=== PATIENT | female | born 1975 | race Caucasian/White ===

== ENCOUNTER 2020-10-09 12:13 | Inpatient (IN) | payer BC, OTHER ==
[2020-10-09] VITALS (11 sets, daily range): BP systolic 121–170; BP diastolic 66–100
[~2020-10-09] VITALS: Ht 167.6 cm; Wt 102.1 kg
--- NOTE | ~2020-10-09 | HC ---
[facility] [place] [address] [place] [address] CONSULTATION Name: STEVEN MILES Room #: DEP Rose#: [id number] Admission: 10/09/20 Attend Phys: Discharge: 10/09/20 Date of : 79 Report #: [id number] THIS REPORT FOR: cc: FAM - Family physician unknown FAM - Family physician unknown Medardo Campbell MD ~ DATE OF SERVICE: 10/09/2020 CARDIOLOGY CONSULTATION INDICATION: Chest pain. HISTORY OF PRESENT ILLNESS: This is a 45-year-old female with a history of hypertension, hypercholesterolemia, tobacco use, and psoriasis, presenting with acute onset of left-sided chest pain. She was eating breakfast when she developed discomfort in the left side radiating down the left arm. She felt nauseous and mildly dyspneic. She called 911 about 10 minutes after onset of symptoms. She reports having prior episodes, less intense and resolving quickly. There is no history of fever, chills, or orthopnea. The EKG performed by EMS revealed ST elevation in inferior leads. In the ER, she received aspirin, Effient and heparin. She was noted to be hypotensive, treated with intravenous saline. PAST MEDICAL HISTORY: Apparent history of hypertension and hypercholesterolemia, not on any medications. She has not seen a physician in quite some time. ALLERGIES: None. MEDICATIONS: None. SOCIAL HISTORY: Positive tobacco use, 1 pack per day. FAMILY HISTORY: Negative for premature CAD. REVIEW OF SYSTEMS: Please see HPI. PHYSICAL EXAMINATION: VITAL SIGNS: Blood pressure is 120/70, heart rate is 90 beats per minute. GENERAL APPEARANCE: This is an overweight female, in mild distress. HEENT: Normocephalic, atraumatic. Oral mucosa moist. NECK: Supple. LUNGS: Clear to auscultation. CARDIAC: Regular rate and rhythm, S1, S2 positive. ABDOMEN: Soft, nontender. [facility] [address] [place] [address] CONSULTATION Name: STEVEN MILES Room #: DEP STEPHANIE Rose#: [id number] Admission: 10/09/20 Attend Phys: Discharge: 10/09/20 Date of : 79 Report #: [id number] EXTREMITIES: No edema, no cyanosis. ECG reveals sinus rhythm with ST elevation in the inferolateral leads II, III, aVF, V5 and V6. ST depression in V2. ASSESSMENT AND PLAN: 1. Acute inferolateral myocardial infarction, treated with heparin, aspirin, and Effient. We will be taken emergently to the cardiac clinical laboratory scientist. 2. Hypercholesterolemia, will need to initiate statin therapy. 3. Hypertension, history of but not on medications, presented with hypotension, probably due to acute insult as well as RV component. We will manage with fluids for now. 4. Tobacco use, complete smoking cessation is advised. By: [id number] Medardo Campbell MD /nt
[2020-10-09 12:48] LABS: ANION GAP 11 mmol/L (7-16); BUN 11 mg/dL (7-18); CALCIUM 8.7 mg/dL (8.5-10.1); CHLORIDE 104 mmol/L (98-107); CO2 22 mmol/L (21-32); CREATININE 0.9 mg/dL (0.6-1.0); GLUCOSE 141 mg/dL (74-106); POTASSIUM 3.7 mmol/L (3.5-5.1); SODIUM 137 mmol/L (136-145)
[2020-10-09 12:56] LABS: TROPONIN-I <0.06 ng/mL (<0.06)
[2020-10-09 12:57] LABS: PROTIME 10.5 Seconds (9.3-11.4)
[2020-10-09 13:11] LABS: ABSOLUTE NEUTROPHILS 5.9 thou/uL (1.4-8.2); BASOPHILS 0.7 % (0.0-2.0); EOSINOPHILS 1.5 % (0.0-3.0); HEMATOCRIT 40.7 % (37.0-47.0); HEMOGLOBIN 13.4 gm/dL (12.0-15.0); MCH 29.9 pg (26.0-34.0); MCHC 32.9 g/dL (28.0-37.0); MONOCYTES 4.4 % (1.0-8.0); PLATELET COUNT 238 thou/uL (150-400); POLYS 74.4 % (36.0-66.0); RBC 4.47 mil/uL (4.20-5.00); RDW 13.2 % (10.5-14.5); WBC 7.9 thou/uL (4.0-11.0)
[2020-10-09 13:24] LABS: CHOLESTEROL 247 mg/dL (<200); HDL CHOLESTEROL 34 mg/dL (>40); LDL CHOLESTEROL 172 mg/dL (<100); TC:HDL 7.3 Ratio (Not establshd); TRIGLYCERIDE 205 mg/dL (<150); VLDL 41 mg/dL (<40)
--- NOTE | 2020-10-09 17:59 | NUR ---
PT CARE ASSUMED AT 1410. ASSESSMENTS CHARTED. MEDICATIONS CHARTED. RAC IV. LFA IV. SINUS RHYTHM. RT GROIN, MYNX; LDA. HEMOSTASIS AT 1345, BEDREST UNTIL 1645. ACHS, PT IS NOT DIABETIC.
[2020-10-10] VITALS (8 sets, daily range): BP systolic 123–150; BP diastolic 60–90
--- NOTE | 2020-10-10 03:29 | NUR ---
PT IS ALERT AND ORIENTED X4. LUNGS ARE CLEAR. UP AMBULATES TO BATHROOM. RIGHT GROIN SITE WITH MINX DRESSING. SLIGHT HEMATOMA NOTED. COMPLAINS OF RIGHT KNEE PAIN RATES IT A 7. MEDICATED WITH PAIN MEDS FOR COMFORT. AND PT RESTING NOW AFTER MEDS GIVEN. WILL CONTINUE TO ASSESS AND MONITOR PER NURSING AT THIS TIME.
[2020-10-10 04:57] LABS: HEMATOCRIT 38.2 % (37.0-47.0); HEMOGLOBIN 12.8 gm/dL (12.0-15.0); MCH 30.2 pg (26.0-34.0); MCHC 33.5 g/dL (28.0-37.0); MCV 90.1 fL (80.0-100.0); RBC 4.24 mil/uL (4.20-5.00); RDW 13.1 % (10.5-14.5); WBC 10.2 thou/uL (4.0-11.0)
[2020-10-10 05:14] LABS: CALCIUM 8.5 mg/dL (8.5-10.1); CREATININE 0.8 mg/dL (0.6-1.0); TOTAL BILIRUBIN 0.3 mg/dL (0.2-1.0); TOTAL PROTEIN 6.1 g/dL (6.4-8.2)
[2020-10-10 05:15] LABS: TROPONIN-I 9.54 ng/mL (<0.06)
--- NOTE | 2020-10-10 05:18 | NUR ---
ELIZABETH FROM LAB CALLED WITH CRITICAL TROPONIN OF 9.54. ALL APPROPRIATE PARTIES NOTIFIED. CRITICAL LAB DOCUMENTED.
[2020-10-10 05:36] LABS: GLYCOHEMOGLOBIN (HGB A1C) 5.6 % (4.8-5.6)
--- NOTE | 2020-10-10 09:25 | EKG ---
[address] [address] ELECTROCARDIOGRAM REPORT Name: STEVEN MILES Room #: 210-P ADM IN M.R.#: [id number] Admission: 10/09/20 Attend Phys: Fouzia Barry Discharge: Date of : 79 Report #: [id number] [facility] Test Date: 2020-10-10 Test Time: 09:04:21 Pat Name: STEVEN MILES Department: Room: 210 P Gender: F Acquisition Manager: [place] : 1975 Requested By: Medardo Campbell Order Number: [id number] MD: Rodri Ty Measurements Intervals [place] Rate: 56 P: 51 VT: 130 QRS: 20 QRSD: 94 T: -16 QT: 520 QTc: 502 Interpretive Statements Sinus rhythm Probable anterior infarct, age indeterminate No previous ECG available for comparison Electronically Signed On 10-10-2020 9:25:46 ALL TERRAIN VEHICLE TECHNICIAN by Rodri Ty [email or web address] <ELECTRONICALLY SIGNED> By: Rodri Ty MD 10/10/2025 3 3 Rodri Ty MD /CHARLA
--- NOTE | 2020-10-10 12:02 | EKG ---
[place] [address] [facility] [place] [address] ELECTROCARDIOGRAM REPORT Name: STEVEN MILES Room #: 210-P ADM IN M.R.#: [id number] Admission: 10/09/20 Attend Phys: Fouzia Barry Discharge: Date of : 79 Report #: [id number] [facility] ED Test Date: 2020-10-09 Test Time: 12:15:52 Pat Name: STEVEN MILES Department: Room: 210 Gender: F Gun Synchronizer: AMNA : 1975 Requested By: Medardo Campbell Order Number: [id number] MD: Rodri Ty Measurements Intervals [place] Rate: 57 P: 62 LA: 128 QRS: 85 QRSD: 105 T: 111 QT: 444 QTc: 433 Interpretive Statements Sinus rhythm Inferoposterior infarct, acute (RCA) Anteroseptal infarct, age indeterminate Lateral leads are also involved Probable RV involvement, suggest recording right precordial leads Baseline wander in lead(s) V1 No previous ECG available for comparison Electronically Signed On 10-10-2020 12:02:21 END USER SUPPORT SPECIALIST by Rodri Ty [email or web address] <ELECTRONICALLY SIGNED> By: Rodri Ty MD 10/10/20 1202 1215 1215 Rodri Ty MD /EPI
--- NOTE | 2020-10-10 16:54 | NUR ---
PT CARE ASSUMED AST 0700. ASSESSMENTS CHARTED. MEDICATIONS CHARTED. RW IV. LAC IV. SINUS RHYTHM. DAY 3 - RT GROIN, MYNX. ACHS. PSORIASIS. KNEE XRAY COMPLETED.
[2020-10-11 05:26] VITALS: BP 118/70
--- NOTE | 2020-10-11 06:39 | NUR ---
SLEPT MOST OF SHIFT. UP AD ROSELIA IN ROOM WITHOUT COMPLAINTS. REMAINS WITH RIGHT KNEE PAIN AND TENDER TO TOUCH, PAIN MEDICATIONS GIVEN NEEDED WITH NOTED RELIEF. WORKING ON GOALS AND PLAN OF CARE FOR NOC. PROGRESSING TOWARDS DISCHARGE GOALS SLOWLY. CONTINUE TO ASSES CLOSELY.
[2020-10-11 07:30] VITALS: BP 149/79
[2020-10-11] MEDS ORDERED: LIPITOR40 MG PO (08:37)
[2020-10-11] MEDS ORDERED: EFFIENT10 MG PO (08:37)
[2020-10-11] MEDS ORDERED: METOPROLOL TART25 MG PO (08:37)
[2020-10-11] MEDS ORDERED: ASPIRIN325 PO (08:38)
[2020-10-11] MEDS ORDERED: LISINOPRIL10 MG PO (08:38)
--- NOTE | 2020-10-11 09:10 | NUR ---
ASSUMED PT CARE AT 0700. PT RESTING IN BED, AWAITING BREAKFAST. PT ADMITS TO MINOR DISCOMFORT IN THE RIGHT KNEE FROM A FALL. PT STATES IT IS TOLERABLE AT THIS TIME. ASSESSMENT PERFORMED. VSS. WILL CONTINUE TO MONITOR.
[2020-10-11 09:48] VITALS: BP 149/79
--- NOTE | 2020-10-11 10:12 | CATHLAB ---
[facility] [address] [place] [address] INVASIVE PROCEDURE REPORT Name: STEVEN MILES Room #: 210-P ADM IN M.R.#: [id number] Admission: 10/09/20 Attend Phys: Fouzia Barry Discharge: Date of : 79 Report #: [id number] THIS REPORT FOR: cc: FAM - Family physician unknown FAM - Family physician unknown Medardo Campbell MD ~ APPROVED REPORT Study performed: 10/09/2020 12:28:28 Patient Details Patient Status: Out-Patient Room #: The patient is a 45 year-old female Event Personnel Medardo Campbell Sieve Repairer, Mack Guzman RN, Doris Grande RTR Tito Brown Sherra RTR Monitor Procedures Performed Art Access - R femoral artery* Left Heart Cath w/or w/o Coronaries [id number] [facility] Revasc AMI Total/Sub Single RCA [id number] AMIREVSING Hemostasis w/ Mynx Indication STEMI (>0 to less than or equal to 6 hours), Dyspnea, Chest pain Risk Factors Hypercholesterolemia, Hypertension, Tobacco History () Procedure Narrative The Right Groin^ was infiltrated with 1% Lidocaine subcutaneous anesthesia. A PINNACLE 6FR Sheath #[id number] sheath was inserted into the RFA^. Coronary angiography was performed using coronary diagnostic catheters. The right coronary system was accessed and visualized with a VISTA 6FR JR 4 #[id number] catheter. The left coronary system was accessed and visualized with a JL4 catheter. The left ventricle was accessed and visualized with a PIGTAIL catheter. Left ventriculogram was performed in 30 degree projection. Pre-demployment femoral angiogram was performed . Closure device was deployed with a 6 Fr MYNXGRIP 6/7F #[id number]. The patient tolerated the procedure well and there were no complications associated with the procedure. A hematoma occurred. [facility] [address] [place] [address] INVASIVE PROCEDURE REPORT Name: MILESSTEVEN Room #: 210-P [facility] IN M.R.#: [id number] Admission: 10/09/20 Attend Phys: Fouzia Paniagua Discharge: Date of : 79 Report #: [id number] Intraoperative Conscious Sedation NO SEDATION GIVEN Fluoro Time: 7.35 minutes Dose: DAP 8313.30 cGycm2 992 mGy Contrast Type and Amount: Visipaque 135 ml Coronary Angiography The patient's coronary anatomy is right dominant. Diagnostic Cath Left Main There are separate ostial for LAD and LCx. LAD The LAD is a moderate-sized caliber vessel, traverses the anterior wall and wraps around the apex. There is mild disease in the proximal segment. There is a moderate stenosis of 50% at the bifurcation of the first diagonal artery. Diagonal 1 This is a moderate-sized caliber vessel, patent with no flow-limiting lesions. Circumflex There is mild disease in the proximal segment. OM1 This is a small to moderate-sized caliber vessel, with no flow-limiting lesions. OM2 This is a moderate-sized caliber vessel, patent with no flow-limiting lesions. Right Coronary The RCA is a dominant vessel with a severe occlusion in the midsegment, 95%. R PDA This is a moderate-sized caliber vessel, patent with no flow-limiting lesions. RPLV This is a moderate-sized caliber vessel, patent with no flow-limiting lesions. Left Ventriculography The left ventricle is normal in size with Diminished contractility. The left ventricular ejection fraction is estimated to be 40-45%. Left ventricular wall motion abnormalities are present. There is hypokinesis of the inferior wall. Hemodynamics The aortic pressure is 168/84 mmHg with a mean of 126 mmHg. The left ventricular pressure is 162/12 mmHg with a mean of mmHg. The left ventricular end diastolic pressure is 30 mmHg. PCI Technique Lesion Percutaneous coronary intervention was performed on the mid right coronary artery. The lesion stenosis prior to intervention was 95% with BOB 3 flow. A VISTA 6FR JR 4 #[id number] Guide Catheter was used to engage the ostium. A Luge Wire .014 x 182CM #[id number] Interventional [facility] [address] [place] [address] INVASIVE PROCEDURE REPORT Name: STEVEN MILES Room #: 210-P ADM IN M.R.#: [id number] Admission: 10/09/20 Attend Phys: Fouzia Paniagua Discharge: Date of : 79 Report #: [id number] Guidewire was used to cross the lesion. BALLOON DILATION A Balloon catheter Euphora RX 2.5 x 12 #[id number] was inserted and inflated up to 10.00atm for 16seconds. STENT DEPLOYMENT A drug-eluting stent RESOLUTE LUCIA RX 3.5 X 15 #[id number] was inserted and inflated up to 14.00atm for 16seconds. POST STENT DEPLOYMENT BALLOON DILATION A Balloon catheter Euphora NC RX 3.5 x 12 #[id number] was inserted and inflated up to 20.00atm for 21seconds. Final angiography reveals 5 % stenosis with BOB 3 flow. Conclusion 1. Successful insertion of a drug-eluting stent into the severe occlusion in the midsegment of the RCA. 2. There are separate ostia for the LAD and left circumflex arteries. 3. There is moderate stenosis in the midsegment of the LAD. 4. There is mild to moderate segmental LV dysfunction. 5. Recommend dual antiplatelet therapy and aggressive risk factor management. <ELECTRONICALLY SIGNED> By: Medardo Campbell MD 10/11/201011 11 11 Medardo Campbell MD /INF
--- NOTE | 2020-10-11 11:31 | NUR ---
PT PREPARING FOR D/C.
--- NOTE | 2020-10-11 12:24 | 2DMMODE ---
[facility] [address] [place] [address] 2 D/M-MODE ECHOCARDIOGRAM Name: STEVEN MILES Room #: 210-P [facility] IN M.R.#: [id number] Admission: 10/09/20 Attend Phys: Fouzia Marlow Leticia Discharge: 10/11/20 Date of : 79 Report #: [id number] THIS REPORT FOR: cc: FAM - Family physician unknown FAM - Family physician unknown Medardo Campbell MD ~ APPROVED REPORT Study performed: 10/11/2020 10:43:55 EXAM: Comprehensive 2D, Doppler, and color-flow Echocardiogram Patient Location: Bedside Room #: 210 Status: routine BSA: 2.08 HR: 61 bpm BP: 149/79 mmHg Rhythm: NSR Other Information Study Quality: Good Indications Hypertension/HDD STEMI 2D Dimensions RVDd: 28.73 mm IVSd: 14.58 (7-11mm) LVOT Diam: 22.01 (18-24mm) LVDd: 54.00 mm PWd: 9.51 (7-11mm) Ascending Ao: 32.11 (22-36mm) LVDs: 27.28 (25-40mm) Aortic Root: 33.46 mm IVC: 16.00 mm Volumes Left Atrial Volume (Systole) Single Plane 4CH: 54.23 mL Single Plane 2CH: 51.16 mL LA ESV Index: 28.00 mL/m2 Aortic Valve AoV Peak Tae.: 1.61 m/s AO Peak Gr.: 10.32 mmHg LVOT Max P.88 mmHg LVOT Max V: 1.21 m/s OLGA Vmax: 2.87 cm2 [facility] [address] [place] [address] 2 D/M-MODE ECHOCARDIOGRAM Name: GINGERSTEVEN Room #: 210-P [facility].#: [id number] Admission: 10/09/20 Attend Phys: Fouzia Paniagua Discharge: 10/11/20 Date of : 79 Report #: [id number] Mitral Valve E/A Ratio: 1.4 MV Decel. Time: 124.69 ms MV E Max Tae.: 1.01 m/s MV A Tae.: 0.70 m/s MV PHT: 36.16 ms IVRT: 78.43 ms Pulmonary Valve PV Peak Tae.: 1.15 m/s PV Peak Gr.: 5.25 mmHg Pulmonary Vein P Vein S: 0.60 m/s P Vein A: 0.29 m/s P Vein D: 0.48 m/s P Vein A Dur.: 147.6 msec P Vein S/D Ratio: 1.25 Left Ventricle The left ventricle is normal size. There is normal LV segmental wall motion. Borderline concentric left ventricular hypertrophy. The left ventricular systolic function is normal. The left ventricular ejection fraction is within the normal range. LVEF is 55-60%. Right Ventricle The right ventricle is normal size. The right ventricular systolic function is normal. Atria The left atrium size is normal. The right atrium size is normal. Aortic Valve The aortic valve is normal in structure. No aortic regurgitation is present. There is no aortic valvular stenosis. Mitral Valve The mitral valve is normal in structure. There is no mitral valve regurgitation noted. No evidence of mitral valve stenosis. Tricuspid Valve The tricuspid valve is normal in structure. There is no tricuspid valve regurgitation noted. Pulmonic Valve The pulmonary valve is normal in structure. There is no pulmonic valvular regurgitation. [facility] [address] [place] [address] 2 D/M-MODE ECHOCARDIOGRAM Name: STEVEN MILES Room #: 210-P [facility] IN M.R.#: [id number] Admission: 10/09/20 Attend Phys: Fouzia Paniagua Discharge: 10/11/20 Date of : 79 Report #: [id number] Great Vessels The aortic root is normal in size. IVC is normal in size and collapses >50% with inspiration. Pericardium There is no pericardial effusion. <Conclusion> The left ventricle is normal size. Borderline concentric left ventricular hypertrophy. The left ventricular systolic function is normal. The right ventricle is normal size. The left atrium size is normal. The aortic valve is normal in structure. There is no mitral valve regurgitation noted. <ELECTRONICALLY SIGNED> By: Medardo Campbell MD 10/11/20 122 122 23 Medardo Campbell MD /ISAAC
== END 2020-10-11 12:04 | disposition home or self-care (01) | DRG 247 ==
LOC: ER 12:13 → EROBS 13:34 → 2N 13:34
PROVIDERS: Emergency Medicine; Internal Medicine Cardiovascular Disease; ADMIT Hospitalist; ATTEND Hospitalist
PROC: B211YZZ Fluoroscopy of Multiple Coronary Arteries using Other Contrast (ICD-10-PCS; principal; 2020-10-09)
PROC: 027034Z Dilation of Coronary Artery, One Artery with Drug-eluting Intraluminal Device, Percutaneous Approach (ICD-10-PCS; principal; 2020-10-09)
PROC: B215YZZ Fluoroscopy of Left Heart using Other Contrast (ICD-10-PCS; principal; 2020-10-09)
PROC: 4A023N7 Measurement of Cardiac Sampling and Pressure, Left Heart, Percutaneous Approach (ICD-10-PCS; principal; 2020-10-09)
DX: I21.19 ST elevation (STEMI) myocardial infarction involving other coronary artery of inferior wall (principal); I10 Essential (primary) hypertension; E78.00 Pure hypercholesterolemia, unspecified; L40.9 Psoriasis, unspecified; F17.210 Nicotine dependence, cigarettes, uncomplicated; J45.909 Unspecified asthma, uncomplicated; E78.5 Hyperlipidemia, unspecified; S30.1XXA Contusion of abdominal wall, initial encounter; X58.XXXA Exposure to other specified factors, initial encounter; S80.01XA Contusion of right knee, initial encounter; Z71.6 Tobacco abuse counseling; Y93.89 Activity, other specified; Y92.89 Other specified places as the place of occurrence of the external cause; Y99.8 Other external cause status
CPT/HCPCS: 10081